=== PATIENT | male | born 1935 | race Caucasian/White ===

== ENCOUNTER 2016-02-26 14:00 | Emergency (ER) | payer MEDICARE, MEDICAID ==
[2016-02-26 15:08] LABS: BASOPHILS 0.6 % (0.0-2.0); EOSINOPHILS 2.8 % (0-7); HEMATOCRIT 45.6 % (42.0-54.0); HEMOGLOBIN 15.3 g/dL (13.5-17.5); IMMATURE GRANULOCYTES 0.2 % (0-5); LYMPHOCYTES 31.5 % (15-50); MCH 29.3 pg (26.0-34.0); MCHC 33.6 g/dL (31.0-37.0); MCV 87.4 fL (80.0-100.0); MONOCYTES 10.7 % (2-11); NEUTROPHILS 54.2 % (40-80); PLATELET COUNT 185 10x3/uL (130-400); RBC 5.22 10x6/uL (4.20-6.10); RDW 13.2 % (11.5-14.5); WBC 5.4 10x3/uL (4.8-10.8)
[2016-02-26 15:13] LABS: APPEARANCE CLEAR (CLEAR); BILIRUBIN NEGATIVE (NEGATIVE); COLOR YELLOW (YELLOW); GLUCOSE NEGATIVE (NEGATIVE); KETONE NEGATIVE (NEGATIVE); LEUKOCYTE ESTERASE NEGATIVE (NEGATIVE); NITRITE NEGATIVE (NEGATIVE); PROTEIN NEGATIVE (NEGATIVE); UROBILINOGEN NORMAL (NORMAL)
== END 2016-02-26 16:01 | disposition home or self-care (01) ==
LOC: D.ER 14:00
PROVIDERS: Emergency Medicine
DX: M54.16 Radiculopathy, lumbar region (principal); I10 Essential (primary) hypertension

== ENCOUNTER 2016-03-03 14:33 | Emergency (ER) | payer MEDICARE, MEDICAID ==
[2016-03-03 16:02] LABS: BASOPHILS 0.6 % (0.0-2.0); EOSINOPHILS 0.4 % (0-7); HEMATOCRIT 44.7 % (42.0-54.0); HEMOGLOBIN 14.4 g/dL (13.5-17.5); IMMATURE GRANULOCYTES 0.2 % (0-5); LYMPHOCYTES 30.3 % (15-50); MCH 28.8 pg (26.0-34.0); MCHC 32.2 g/dL (31.0-37.0); MCV 89.4 fL (80.0-100.0); MEAN PLATELET VOLUME 11.8 fL (7.4-10.4); MONOCYTES 12.4 % (2-11); NEUTROPHILS 56.1 % (40-80); RDW 13.8 % (11.5-14.5); WBC 4.7 10x3/uL (4.8-10.8)
[2016-03-03 16:04] LABS: PLATELET COUNT 141 10x3/uL (130-400)
[2016-03-03 16:18] LABS: ALBUMIN 3.2 g/dL (3.4-5.0); ANION GAP 11.4 mmol/L (8-16); BILIRUBIN - TOTAL 0.35 mg/dL (0.2-1.3); CALCIUM 8.4 mg/dL (8.5-10.1); CARBON DIOXIDE 28.2 mmol/L (21.0-32.0); CREATININE - SERUM 1.7 mg/dL (0.6-1.3); POTASSIUM - SERUM 3.6 mmol/L (3.5-5.1); PROTEIN - SERUM 6.5 g/dL (6.4-8.2)
[2016-03-03 16:28] LABS: THYROID STIMULATING HORMONE 0.99 uIU/mL (0.36-3.74); TROPONIN-I 0.057 ng/mL (0.000-0.060)
== END 2016-03-03 17:34 | disposition home or self-care (01) ==
LOC: D.ER 14:33
PROVIDERS: Family Medicine
DX: R53.1 Weakness (principal); I10 Essential (primary) hypertension

== ENCOUNTER 2018-03-13 23:18 | Emergency (ER) | payer MEDICARE, MEDICAID ==
[~2018-03-13] VITALS: Ht 180.3 cm; Wt 84.1 kg
[2018-03-13 23:23] VITALS: Ht 180.3 cm; Wt 84.1 kg
[2018-03-13] MEDS ORDERED: BAYER CHEWABLE81 MG PO (23:25)
[2018-03-13] MEDS ORDERED: ACCUPRIL20 MG PO (23:26)
[2018-03-13] MEDS ORDERED: PRAVACHOL40 MG PO (23:26)
[2018-03-13] MEDS ORDERED: FLUTICASONE PRO16 GM NASAL (23:26)
[2018-03-13] MEDS ORDERED: TENORMIN25 MG (23:26)
[2018-03-13] MEDS ORDERED: OMEPRAZOLE20 M1 PO (23:26)
[2018-03-13] MEDS ORDERED: HYDROCHLOROTH12.5 M1 PO (23:26)
[2018-03-13 23:48] LABS: BASOPHILS 0.3 % (0-2); EOSINOPHILS 4.1 % (0-7); HEMATOCRIT 46.7 % (42.0-54.0); HEMOGLOBIN 15.7 g/dL (13.5-17.5); IMMATURE GRANULOCYTES 0.1 % (0-5); LYMPHOCYTES 29.7 % (15-50); MCH 29.4 pg (26.0-34.0); MCHC 33.6 g/dL (31.0-37.0); MCV 87.5 fL (80.0-100.0); MEAN PLATELET VOLUME 11.3 fL (7.4-10.4); MONOCYTES 10.3 % (2-11); NEUTROPHILS 55.5 % (40-80); RBC 5.34 10x6/uL (4.20-6.10); RDW 13.4 % (11.5-14.5); WBC 7.5 10x3/uL (4.8-10.8)
[2018-03-13 23:51] LABS: PLATELET COUNT 196 10x3/uL (130-400)
[2018-03-13 23:56] LABS: ALBUMIN 3.5 g/dL (3.4-5.0); BILIRUBIN - TOTAL 0.47 mg/dL (0.2-1.3); CALCIUM 8.6 mg/dL (8.5-10.1); CARBON DIOXIDE 28.2 mmol/L (21.0-32.0); CREATININE - SERUM 1.6 mg/dL (0.6-1.3); POTASSIUM - SERUM 4.2 mmol/L (3.5-5.1); PROTEIN - SERUM 8.1 g/dL (6.4-8.2)
[2018-03-14] LABS: APPEARANCE HAZY (CLEAR); BACTERIA NONE SEEN /hpf (NONE SEEN); BILIRUBIN NEGATIVE (NEGATIVE); COLOR DK YELLOW (YELLOW); EPITHELIAL CELLS NSEEN /hpf (0-5); GLUCOSE NEGATIVE (NEGATIVE); KETONE NEGATIVE (NEGATIVE); NITRITE NEGATIVE (NEGATIVE); PROTEIN TRACE mg/dL (NEGATIVE); RED CELLS - URINE >50 /hpf (0-5); TROPONIN-I 0.024 ng/mL (0.000-0.060); UROBILINOGEN NORMAL (NORMAL); WHITE CELLS - URINE RARE /hpf (0-5)
[2018-03-14 02:06] VITALS: BP 131/74
== END 2018-03-14 02:06 | disposition home or self-care (01) ==
LOC: D.ER 23:18
PROVIDERS: Family Medicine
DX: R10.9 Unspecified abdominal pain (principal)